=== PATIENT | female | born 1970 | race Caucasian/White ===

== ENCOUNTER → 2022-05-13 13:39 | Outpatient (CLI) | payer OTHER, MEDICAID, SELFPAY ==
[2022-05-13 15:00] LABS: COVID19 -Nasal RAPID Negative (Negative)
== END ==
PROVIDERS: PCP Family Medicine; Referring Provider Podiatrist; Visit Provider Podiatrist
DX: Z20.822 Contact with and (suspected) exposure to COVID-19 (principal)
CPT/HCPCS: 87635; C9803

== ENCOUNTER 2022-05-14 06:12 | Day surgery (SDC) | payer OTHER, MEDICAID, SELFPAY ==
[2022-05-05 08:27] VITALS: BMI 23.0
[2022-05-14 06:56] VITALS: BP 97/61; PULSE 67; RESP 16; TEMP 36.4; O2SAT 100; BMI 23.0
[2022-05-14] MEDS: LACTATED RINGERS 1,000 ML 42 ML IV (07:18)
--- NOTE | 2022-05-14 07:45 | PM.PREOP ---
Pre-operative Note COVID-19 COVID-19 status: Negative Result date/Date tested (Pos, Neg/Pending): 05/13/22 Interval Note History & Physical reviewed/Exam performed by Physician: Yes Changes to H&P: No
[2022-05-14] MEDS: CEFAZOLIN 2 GM/100 ML PREMIX 100 ML IV (07:52)
--- NOTE | 2022-05-14 08:20 | SUR.OPER ---
Supine on padded OR bed, head on pillow, arms secured on padded arm boards at <90 degrees abduction, legs uncrossed, safety belt at waist, tape over blanket over lower right leg, left leg draped doug with gel bump under left hip.
[2022-05-14] MEDS: BUPIVACAINE 0.5% (PF) VIAL 30 ML INJ (08:28)
[2022-05-14 08:59] VITALS: BP 99/70; PULSE 75; RESP 12; TEMP 36.5; O2SAT 99
[2022-05-14 09:05] VITALS: BP 105/62; PULSE 62; RESP 15; O2SAT 100
--- NOTE | 2022-05-14 09:07 | P.OP_ITS ---
Operative Date/Time/Diagnoses Date of procedure: 05/14/22 Time of procedure: 09:07 Pre-op diagnosis: Left great toe arthritis, bone spurs Post-op diagnosis: same Procedure & Clinicians Procedure: Left first metatarsophalangeal joint cheilectomy Same procedure as scheduled: Yes Indications: 52-year-old female with painful left great toe joint with spurring and suspected arthritis. Conservative measures have failed to alleviate her pain and she wished to have surgical intervention at this time. We spoke of the risks, potential complications, alternatives, and expected outcomes. Consent was signed, there were no contraindications to the procedure at this time. Surgeon: Shira Laguna Click Yes if Unassisted: Yes Anesthesia Type: General Operative Notes Closure Type: primary Specimen(s): none sent Estimated Blood Loss (mL): 10 Blood products transfused: none Tourniquet time (min): 18 Procedure in detail: The patient was brought to the operating room and placed on the operating table in the supine position. Tourniquet was placed about the right ankle. Patient is well- padded and appropriately supported. After induction of general anesthesia the right foot and ankle were prepped and draped in the usual aseptic manner. The tourniquet was inflated. Incision was made over the 1st metatarsal phalangeal joint. The incision was deepened through subcutaneous tissues being careful to identify and retract all vital neurovascular structures. All bleeders were cauterized and ligated as necessary. The capsule was entered dorsally at the joint and this exposed the spurring of the dorsal metatarsal head, proximal phalangeal base, and small ossicles/joint mice on the dorsal joint. Of note, the metatarsal head showed wearing of cartilage surface by about 1/4 to 1/3. The saw and rongeur were used to resect the dorsal joint spurs and remove the ossicles from either side of joint including the proximal phalangeal base. A rasp was used to reduce the sharp edges of the bones. The area was irrigated with copious amounts normal sterile saline. The toe showed increased motion without crepitus on dorsiflexion and plantarflexion. Deep and subcutaneous closure was closed performed with Vicryl. The tourniquet was deflated and a prompt hyperemic response was seen in the foot. Nylon suture used to close the skin. The foot was dressed with a lightly compressive sterile dressing and splint in alignment. Patient was then placed in a postoperative shoe and transferred to PACU with vital signs stable. Post-operative Condition: stable Disposition: PACU Plan for aftercare: Following a period of postoperative monitoring, the patient will be discharged to home on written and oral postoperative instructions including keeping the dr essing dry and intact, less than 50% weight-bearing on the surgical foot, icing and elevating the foot when seated home. DVT prevention techniques have been reviewed. For the 1st postoperative visit the dressing will be changed and close to the 3rd postoperative week we will likely remove the sutures.
[2022-05-14 09:10] VITALS: BP 119/78; PULSE 67; RESP 18; O2SAT 100
[2022-05-14 09:15] VITALS: BP 122/70; PULSE 69; RESP 17; TEMP 36.5; O2SAT 99
[2022-05-14 09:20] VITALS: BP 119/70; PULSE 61; RESP 18; O2SAT 100
[2022-05-14] MEDS: HYDROCODONE/ACET 5/325 TABLET 1 TAB PO (09:24)
== END 2022-05-14 09:35 | disposition home or self-care (01) ==
PROVIDERS: PCP Family Medicine; Referring Provider Podiatrist; Visit Provider Podiatrist
PROC: (CPT 28289; principal; 2022-05-14 07:45)
DX: M19.072 Primary osteoarthritis, left ankle and foot (principal); M77.8 Other enthesopathies, not elsewhere classified; M25.774 Osteophyte, right foot
CPT/HCPCS: 28289; J0690; J1100; J2250; J2405; J2704; J3010